=== PATIENT | female | born 1945 | race Caucasian/White ===

== ENCOUNTER 2017-02-21 17:08 | Emergency (ER) | payer OTHER ==
--- NOTE | 2017-02-21 17:14 | EDPHY ---
H & P Time Seen by Provider: 02/21/17 17:12 HPI/ROS: 71-year-old female with history of COPD on oxygen at nighttime presents with complaint of cough fever shortness of breath body aches for greater than 7 days. She has been treated with azithromycin and a prednisone taper which she finished this week. She continues to have symptoms and visited her primary care physician today who then sent her to the emergency department for concern of pneumonia. Her oxygen saturations have been low at home today as low as in the high 70s low 80s. Review of systems As per HPI General positive fever positive chills positive weakness HEENT no eye pain no eye discharge. No eye redness, no sore throat Respiratory positive cough positive shortness of breath Cardiac no chest pain, no peripheral edema GI no abdominal pain, no diarrhea, no constipation, no nausea, no vomiting no flank pain, no hematuria, no dysuria Musculoskeletal positive myalgias no joint pain Heme no easy bruising, no easy bleeding Endo no polyuria, no polydipsia Skin no rashes, no pruritus Neuro no syncope, no dizziness, no headaches Psych is no suicidal ideation, no homicidal ideation Source: Patient, RN/MD - Personal History Current Tetanus/Diphtheria Vaccine: Yes - Medical/Surgical History Hx Asthma: No Hx Chronic Respiratory Disease: Yes Hx Diabetes: No Hx Cardiac Disease: No Hx Renal Disease: No Hx Cirrhosis: No Hx Alcoholism: No Hx HIV/AIDS: No Hx Splenectomy or Spleen Trauma: No Other PMH: former smoker-COPD, depression - Family History Significant Family History: No pertinent family hx - Social History Smoking Status: Former smoker Alcohol Use: None Drug Use: None - Physical Exam Exam: Thin elderly female alert and oriented with coarse cough, no acute distress, mildly tachypneic, febrile 100.7 HEENT atraumatic normocephalic, extraocular muscles intact, anicteric Oropharynx negative for erythema negative exudate, tolerating her own secretions Neck supple no meningismus Lungs scattered wheeze diminished at the left base Heart regular rate and rhythm without murmur rub or gallop Abdomen nondistended normoactive bowel sounds soft nontender Back no CVA tenderness, no step-offs, no spinal tenderness Extremities no cyanosis clubbing or edema Neuro alert and oriented, no focal deficits Constitutional: Initial Vital Signs Temperature (C) 37.1 C 02/21/17 17:18 Heart Rate 97 02/21/17 17:18 Respiratory Rate 18 02/21/17 17:18 Blood Pressure 100/65 02/21/17 17:18 O2 Sat (%) 91 L 02/21/17 17:18 O2 Delivery Mode Nasal Cannula O2 (L/minute) 2 Allergies/Adverse Reactions: No Known Allergies Allergy (Verified 02/21/17 17:23) Home Medications: Medication Instructions Recorded Albuterol [Proventil Inhaler HFA 1 - 2 puffs IH DAILY PRN 04/07/16 (*)] Cholecalciferol Vit D3 [Vitamin D3 2,000 units PO DAILY 04/07/16 (*)] Fluticasone/Salmeter 250/50Mcg 1 puffs IH BID 04/07/16 [Advair 250/50 (*)] Sertraline HCl [Zoloft 100mg (*)] 100 mg PO HS 04/07/16 Simvastatin [Zocor] 40 mg PO HS 04/07/16 Docusate Sodium [Colace 100 MG (*)] 100 mg PO BID #0 cap 05/06/16 Simethicone [Mylicon] 80 mg PO PCHS #0 tab.chew 05/06/16 Duoneb (*) 02/21/17 Medical Decision Making - Diagnostics Imaging Results: Imaging Impressions Chest X-Ray 02/21/17 17:27 Impression: 1. Findings consistent with COPD/emphysema are noted. 2. Development of left lower lobe patchy alveolar opacity could reflect pneumonia. ED Course/Re-evaluation: Patient with a known history of COPD seen and evaluated for cough fevers chills , body aches to rule out pneumonia Differential diagnosis considered Bronchitis, COPD, pneumonia, congestive heart failure, Mi Labs obtained Lactate negative, 1.1 WBC 10 Blood cultures x2 sent Troponin negative Chest x-ray positive for patchy left lower lobe opacity Patient given 1 L IV normal saline, DuoNeb, Solu-Medrol 125 mg IV push IV ceftriaxone 1 g IV piggyback started Patient on 2.5 L nasal cannula Impression Left lower lobe patchy opacity, pneumonia COPD exacerbation Plan Admit Patient request transfer to a [place] Talk to the hospitalist at [facility] - Data Points Laboratory Results: Laboratory Results 02/21/17 17:34 02/21/17 17:34 02/21/17 02/21/17 02/21/17 17:34 17:34 17:34 WBC 10.59 10^3/uL H 10^3/uL (3.80-9.50) RBC 4.66 10^6/uL 10^6/uL (4.18-5.33) Hgb 13.3 g/dL g/dL (12.6-16.3) Hct 39.9 % % (38.0-47.0) MCV 85.6 fL fL (81.5-99.8) MCH 28.5 pg pg (27.9-34.1) MCHC 33.3 g/dL g/dL (32.4-36.7) RDW 13.8 % % (11.5-15.2) Plt Count 326 10^3/uL 10^3/uL (150-400) MPV 10.3 fL fL (8.7-11.7) Neut % (Auto) 76.2 % H % (39.3-74.2) Lymph % (Auto) 11.3 % L % (15.0-45.0) [place] % (Auto) 11.2 % % (4.5-13.0) Eos % (Auto) 0.3 % L % (0.6-7.6) Baso % (Auto) 0.3 % % (0.3-1.7) Nucleat RBC Rel Count 0.0 % % (0.0-0.2) Absolute Neuts (auto) 8.07 10^3/uL H 10^3/uL (1.70-6.50) Absolute Lymphs (auto) 1.20 10^3/uL 10^3/uL (1.00-3.00) Absolute Monos (auto) 1.19 10^3/uL H 10^3/uL (0.30-0.80) Absolute Eos (auto) 0.03 10^3/uL 10^3/uL (0.03-0.40) Absolute Basos (auto) 0.03 10^3/uL 10^3/uL (0.02-0.10) Absolute Nucleated RBC 0.00 10^3/uL 10^3/uL (0-0.01) Immature Gran % 0.7 % % (0.0-1.1) Immature Gran # 0.07 10^3/uL 10^3/uL (0.00-0.10) VBG Lactic Acid 1.1 mmol/L mmol/L (0.7-2.1) Sodium 134 mEq/L mEq/L (134-144) Potassium 4.4 mEq/L mEq/L (3.5-5.2) Chloride 97 mEq/L mEq/L (97-110) Carbon Dioxide 25 mEq/l mEq/l (22-31) Anion Gap 12 mEq/L mEq/L (8-16) BUN 14 mg/dL mg/dL (7-23) Creatinine 0.8 mg/dL mg/dL (0.6-1.0) Estimated GFR > 60 Glucose 95 mg/dL mg/dL (70-100) Calcium 9.4 mg/dL mg/dL (8.5-10.4) Total Bilirubin 0.7 mg/dL mg/dL (0.1-1.4) AST 58 IU/L H IU/L (14-46) ALT 94 IU/L H IU/L (9-52) Alkaline Phosphatase 73 IU/L IU/L (38-126) Creatine Kinase 63 IU/L IU/L (0-156) Troponin I < 0.012 ng/mL ng/mL (0-0.034) Total Protein 6.1 g/dL L g/dL (6.3-8.2) Albumin 3.6 g/dL g/dL (3.5-5.0) Medications Given: Discontinued Medications Acetaminophen (Tylenol) 650 mg PO EDNOW ONE Stop: 02/21/17 17:27 Last Admin: 02/21/17 18:25 Dose: 650 mg Albuterol/Ipratropium (Duoneb) 3 ml IH EDNOW ONE Stop: 02/21/17 17:27 Last Admin: 02/21/17 18:27 Dose: 3 ml Sodium Chloride (Ns) 1,000 mls @ 0 mls/hr IV ONCE ONE PRN Reason: Wide Open Stop: 02/21/17 17:29 Last Admin: 02/21/17 18:16 Dose: 1,000 mls Ceftriaxone Sodium/Dextrose (Rocephin 1 Gm (Premix)) 50 mls @ 100 mls/hr IV EDNOW ONE PRN Reason: Protocol Stop: 02/21/17 18:21 Last Admin: 02/21/17 18:20 Dose: 50 mls Ketorolac Tromethamine (Toradol) 15 mg IVP EDNOW ONE Stop: 02/21/17 18:32 Last Admin: 02/21/17 18:46 Dose: 15 mg Methylprednisolone Sodium Succinate (Solu-Medrol) 125 mg IVP EDNOW ONE Stop: 02/21/17 17:52 Last Admin: 02/21/17 18:17 Dose: 125 mg Departure - Departure Disposition: [facility] Clinical Impression: Pneumonia, Chronic obstructive pulmonary disease with acute exacerbation Condition: Good Referrals: Maylin Gillespie MD [Primary Care Provider] - As per Instructions
[2017-02-21] MEDS ORDERED: IPRATROPIUM/ALBUTEROL 3 ML DEYVIAL IH ONE (17:26)
[2017-02-21] MEDS ORDERED: ACETAMINOPHEN 325 MG TAB PO ONE (17:26)
[2017-02-21 17:27] VITALS: RESP 18
[2017-02-21] MEDS ORDERED: NS 1,000 ML IV ONE (17:28)
[2017-02-21] MEDS ORDERED: methylPREDNISolone SOD SUCC 125 MG/2 ML VIAL IVP ONE (17:51)
[2017-02-21 18:07] LABS: % IMMATURE GRANULYOCYTES 0.7 % (0.0-1.1); ABSOLUTE IMMATURE GRANULOCYTES 0.07 10^3/uL (0.00-0.10); ADD DIFF? NO; ADD MORPH? NO; ADD SCAN? NO; ATYPICAL LYMPHOCYTE FLAG 20 (0-99); FRAGMENT RBC FLAG 0 (0-99); HEMATOCRIT 39.9 % (38.0-47.0); HEMOGLOBIN 13.3 g/dL (12.6-16.3); LEFT SHIFT FLG 10 (0-99); LIPEMIA HEMOLYSIS FLAG 80 (0-99); MEAN CELL HEMOGLOBIN 28.5 pg (27.9-34.1); MEAN CELL HEMOGLOBIN CONCENTR. 33.3 g/dL (32.4-36.7); MEAN CELL VOLUME 85.6 fL (81.5-99.8); MEAN PLATELET VOLUME 10.3 fL (8.7-11.7); PLATELET CLUMPS FLAG 0 (0-99); PLATELET COUNT 326 10^3/uL (150-400); RED BLOOD CELL COUNT 4.66 10^6/uL (4.18-5.33); RED CELL DISTRIBUTION WIDTH 13.8 % (11.5-15.2)
[2017-02-21 18:17] LABS: ALANINE AMINOTRANSFERASE 94 IU/L (9-52); ALBUMIN 3.6 g/dL (3.5-5.0); ALKALINE PHOSPHATASE 73 IU/L (38-126); ANION GAP 12 mEq/L (8-16); ASPARTATE AMINOTRANSFERASE 58 IU/L (14-46); BILIRUBIN,TOTAL 0.7 mg/dL (0.1-1.4); CALCIUM 9.4 mg/dL (8.5-10.4); CARBON DIOXIDE 25 mEq/l (22-31); CHLORIDE 97 mEq/L (97-110); CREATININE 0.8 mg/dL (0.6-1.0); GLOMERULAR FILTRATION RATE > 60; GLUCOSE 95 mg/dL (70-100); POTASSIUM 4.4 mEq/L (3.5-5.2); SODIUM 134 mEq/L (134-144); TOTAL PROTEIN 6.1 g/dL (6.3-8.2)
[2017-02-21 18:28] LABS: TROPONIN I < 0.012 ng/mL (0-0.034)
[2017-02-21] MEDS ORDERED: KETOROLAC 15 MG/1 ML SDV IVP ONE (18:31)
[2017-02-21 20:44] VITALS: BP 96/60; PULSE 98; TEMP 98.4; O2SAT 94
== END 2017-02-21 20:13 | disposition short-term general hospital (02) ==
LOC: CED 17:08
DX: J44.1 Chronic obstructive pulmonary disease with (acute) exacerbation (principal); J18.9 Pneumonia, unspecified organism; Z87.891 Personal history of nicotine dependence
CPT/HCPCS: 71020; 96361; 96365; 96375; 99285; J0696; J1885; 80053-PO; 82550-PO; 83605-PO; 84484-PO; 85025-PO

== ENCOUNTER → 2017-03-24 | Outpatient (CLI) | payer OTHER | LOC: CIMAGING 16:57 | PROVIDERS: ATTEND Family Medicine | DX: J44.9 Chronic obstructive pulmonary disease, unspecified (principal); J98.11 Atelectasis | CPT/HCPCS: 71020-PO ==

== ENCOUNTER 2017-03-28 15:55 | Emergency (ER) | payer OTHER ==
--- NOTE | 2017-03-28 16:26 | EDPHY ---
H & P Time Seen by Provider: 03/28/17 16:18 HPI/ROS: CHIEF COMPLAINT: Left-sided chest pain HISTORY OF PRESENT ILLNESS: The patient is a 71-year-old female with a history of COPD who comes to the emergency department complaining of left-sided pleuritic chest pain for the last 2 weeks. She was admitted to the hospital with pneumonia 1 month ago and discharged with Augmentin. She recovered well but had a follow-up x-ray with her Dr. Maylin Gillespie 4 days ago that revealed left lower lobe atelectasis versus mild infiltrate. The patient was complaining of left-sided pleuritic pain and mild shortness of breath. She was started on Levaquin and states that her shortness of breath has resolved but that the pleuritic pain persists. She has not had a fever. She has not had a cough. She does not fatigue with exertion. She denies any history of cardiac disease. She does have a remote history of breast cancer and lumpectomy. REVIEW OF SYSTEMS: Constitutional: denies: chills, fever, recent illness, recent injury EENTM: denies: blurred vision, double vision, nose congestion Respiratory: See HPI denies: cough, shortness of breath Cardiac: denies: chest pain, irregular heart rate, lightheadedness, palpitations Gastrointestinal/Abdominal: denies: abdominal pain, diarrhea, nausea, vomiting, blood streaked stools Genitourinary: denies: dysuria, frequency, hematuria, pain Musculoskeletal: denies: joint pain, muscle pain Skin: denies: lesions, rash, jaundice, bruising Neurological: denies: headache, numbness, paresthesia, tingling, dizziness, weakness Hematologic/Lymphatic: denies: blood clots, easy bleeding, easy bruising Immunologic/allergic: denies: HIV/AIDS, transplant EXAM: GENERAL: Well-appearing, well-nourished and in no acute distress. HEAD: Atraumatic, normocephalic. EYES: Pupils equal round and reactive to light, extraocular movements intact, sclera anicteric, conjunctiva are normal. ENT: TMs normal, nares patent, oropharynx clear without exudates. Moist mucous membranes. NECK: Normal range of motion, supple without lymphadenopathy or JVD. LUNGS: Breath sounds clear to auscultation bilaterally and equal. No wheezes rales or rhonchi. HEART: Regular rate and rhythm without murmurs, rubs or gallops. ABDOMEN: Soft, nontender, normoactive bowel sounds. No guarding, no rebound. No masses appreciated. BACK: No CVA tenderness, no spinal tenderness, step-offs or deformities EXTREMITIES: Normal range of motion, no pitting or edema. No clubbing or cyanosis. NEUROLOGICAL: Cranial nerves II through XII grossly intact. Normal speech, normal gait. 5/5 strength, normal movement in all extremities, normal sensation PSYCH: Normal mood, normal affect. SKIN: Warm, dry, normal turgor, no visible rashes or lesions. Source: Patient Exam Limitations: No limitations - Medical/Surgical History Hx Asthma: No Hx Chronic Respiratory Disease: Yes Hx Diabetes: No Hx Cardiac Disease: No Hx Renal Disease: No Hx Cirrhosis: No Hx Alcoholism: No Hx HIV/AIDS: No Hx Splenectomy or Spleen Trauma: No Other PMH: former smoker-COPD, depression - Family History Significant Family History: No pertinent family hx - Social History Smoking Status: Former smoker Alcohol Use: Sober Drug Use: None Constitutional: Initial Vital Signs Temperature (C) 36.7 C 03/28/17 16:25 Heart Rate 91 03/28/17 16:25 Respiratory Rate 18 03/28/17 16:25 Blood Pressure 105/59 L 03/28/17 16:25 O2 Sat (%) 90 L 03/28/17 16:25 O2 Delivery Mode Nasal Cannula O2 (L/minute) 2 Allergies/Adverse Reactions: bupropion [From Wellbutrin] Allergy (Verified 02/21/17 20:11) Home Medications: Medication Instructions Recorded Albuterol [Proventil Inhaler HFA 1 - 2 puffs IH DAILY PRN 04/07/16 (*)] Cholecalciferol Vit D3 [Vitamin D3 2,000 units PO DAILY 04/07/16 (*)] Fluticasone/Salmeter 250/50Mcg 1 puffs IH BID 04/07/16 [Advair 250/50 (*)] Sertraline HCl [Zoloft 100mg (*)] 100 mg PO HS 04/07/16 Simvastatin [Zocor] 40 mg PO HS 04/07/16 Docusate Sodium [Colace 100 MG (*)] 100 mg PO BID #0 cap 05/06/16 Simethicone [Mylicon] 80 mg PO PCHS #0 tab.chew 05/06/16 Duoneb (*) 02/21/17 Medical Decision Making - Diagnostics EKG Interpretation: An EKG obtained and was read and documented in trace view. Please see trace view for full reading and report. Sinus rhythm, no acute ischemic changes or signs of right heart strain Imaging Results: Imaging Impressions Chest/Thorax CTA 03/28/17 16:23 Impression: 1. No evidence of thrombopulmonary embolic disease. 2. Atherosclerotic aorta. No dissection or penetrating ulcer. 3. Multifocal nodular airspace consolidation throughout the left upper lobe and bilateral lower lobes. Differential diagnosis includes infectious and inflammatory etiologies, such as fungal infection. Malignancy remains in the differential diagnosis. Recommend short term follow-up noncontrast CT of the chest in 3 months. 4. Severe centrilobular emphysema is worse since 2009. 5. No lymphadenopathy or mass. Findings discussed with Emergency Department physician, Dr. Kelby Zambrano on March 28, 2017 at 1742 hours. Imaging: Discussed imaging studies w/ director call center sales Radiologist ED Course/Re-evaluation: The patient's CT is reassuring. No pulmonary embolism. No significant pneumonia. She does have multiple nodules consistent with resolving pneumonia versus cancer versus fungal infection versus scarring. The patient is afebrile. She is not coughing. She does not have increased O2 requirements. She wears 2 L at baseline. She states that she feels will and is eager to go home. I suspect that her pleuritic pain is from scarring versus pleurisy. Her D-dimer was only minimally elevated and would not be abnormal on an age adjusted scale. It is likely elevated because of her recent pneumonia infection. She is still on a course of Levaquin and states that it is helping. We will road test her here and if she continues to saturate appropriately will discharge her for continued care and follow-up CT scan in 3 months is recommended by Radiology. 5:55 p.m. the patient saturations stayed above 92% while ambulating. She is eager to go home. Differential Diagnosis: Partial list of the Differential diagnosis considered include but were not limited to; pleurisy, pneumonia, PE and although unlikely based on the history and physical exam, I also considered cancer, effusion, acute coronary disease. I discussed these differential diagnoses and the plan with the patient as well as the usual and expected course. The patient understands that the diagnosis is provisional and that in medicine we are not always correct and that further workup is often warranted. Usual and customary warnings were given. All of the patient's questions were answered. The patient was instructed to return to the emergency department should the symptoms at all worsen or return, otherwise to followup with the physician as we discussed. - Data Points Laboratory Results: Laboratory Results 03/28/17 16:20 03/28/17 16:20 03/28/17 03/28/17 03/28/17 16:20 16:20 16:20 WBC 5.71 10^3/uL 10^3/uL (3.80-9.50) RBC 4.66 10^6/uL 10^6/uL (4.18-5.33) Hgb 13.1 g/dL g/dL (12.6-16.3) Hct 40.3 % % (38.0-47.0) MCV 86.5 fL fL (81.5-99.8) MCH 28.1 pg pg (27.9-34.1) MCHC 32.5 g/dL g/dL (32.4-36.7) RDW 14.6 % % (11.5-15.2) Plt Count 300 10^3/uL 10^3/uL (150-400) MPV 9.6 fL fL (8.7-11.7) Neut % (Auto) 60.6 % % (39.3-74.2) Lymph % (Auto) 24.9 % % (15.0-45.0) [place] % (Auto) 10.9 % % (4.5-13.0) Eos % (Auto) 2.5 % % (0.6-7.6) Baso % (Auto) 0.7 % % (0.3-1.7) Nucleat RBC Rel Count 0.0 % % (0.0-0.2) Absolute Neuts (auto) 3.47 10^3/uL 10^3/uL (1.70-6.50) Absolute Lymphs (auto) 1.42 10^3/uL 10^3/uL (1.00-3.00) Absolute Monos (auto) 0.62 10^3/uL 10^3/uL (0.30-0.80) Absolute Eos (auto) 0.14 10^3/uL 10^3/uL (0.03-0.40) Absolute Basos (auto) 0.04 10^3/uL 10^3/uL (0.02-0.10) Absolute Nucleated RBC 0.00 10^3/uL 10^3/uL (0-0.01) Immature Gran % 0.4 % % (0.0-1.1) Immature Gran # 0.02 10^3/uL 10^3/uL (0.00-0.10) PT 13.1 SEC SEC (12.0-15.0) INR 1.02 (0.83-1.16) APTT 34.3 SEC SEC (23.0-38.0) Sodium 142 mEq/L mEq/L (134-144) Potassium 4.1 mEq/L mEq/L (3.5-5.2) Chloride 104 mEq/L mEq/L (97-110) Carbon Dioxide 25 mEq/l mEq/l (22-31) Anion Gap 13 mEq/L mEq/L (8-16) BUN 12 mg/dL mg/dL (7-23) Creatinine 0.8 mg/dL mg/dL (0.6-1.0) Estimated GFR > 60 Glucose 101 mg/dL H mg/dL (70-100) Calcium 9.3 mg/dL mg/dL (8.5-10.4) Total Bilirubin 0.5 mg/dL mg/dL (0.1-1.4) Conjugated Bilirubin 0.4 mg/dL mg/dL (0.0-0.5) Unconjugated Bilirubin 0.1 mg/dL mg/dL (0.0-1.1) AST 23 IU/L IU/L (14-46) ALT 30 IU/L IU/L (9-52) Alkaline Phosphatase 75 IU/L IU/L (38-126) Troponin I < 0.012 ng/mL ng/mL (0.000-0.034) Total Protein 6.5 g/dL g/dL (6.3-8.2) Albumin 3.7 g/dL g/dL (3.5-5.0) Lipase 55 IU/L IU/L (23-300) Departure - Departure Disposition: Home, Routine, Self-Care Clinical Impression: Pleuritic chest pain Condition: Fair Instructions: Pleurisy (ED) Referrals: Maylin Gillespie MD [Primary Care Provider] - 1-2 days without fail
[2017-03-28 16:27] VITALS: RESP 18; TEMP 98.1
[2017-03-28 16:30] LABS: % IMMATURE GRANULYOCYTES 0.4 % (0.0-1.1); ABSOLUTE IMMATURE GRANULOCYTES 0.02 10^3/uL (0.00-0.10); ADD DIFF? NO; ADD MORPH? NO; ADD SCAN? NO; ATYPICAL LYMPHOCYTE FLAG 0 (0-99); FRAGMENT RBC FLAG 0 (0-99); HEMATOCRIT 40.3 % (38.0-47.0); HEMOGLOBIN 13.1 g/dL (12.6-16.3); LEFT SHIFT FLG 0 (0-99); LIPEMIA HEMOLYSIS FLAG 80 (0-99); MEAN CELL HEMOGLOBIN 28.1 pg (27.9-34.1); MEAN CELL HEMOGLOBIN CONCENTR. 32.5 g/dL (32.4-36.7); MEAN CELL VOLUME 86.5 fL (81.5-99.8); MEAN PLATELET VOLUME 9.6 fL (8.7-11.7); PLATELET CLUMPS FLAG 0 (0-99); PLATELET COUNT 300 10^3/uL (150-400); RED BLOOD CELL COUNT 4.66 10^6/uL (4.18-5.33); RED CELL DISTRIBUTION WIDTH 14.6 % (11.5-15.2)
--- NOTE | 2017-03-28 16:34 | CPEKG ---
Heart Rate: 75 RR Interval: 800 P-R Interval: 136 QRSD Interval: 78 QT Interval: 384 QTC Interval: 429 P [place]: 77 QRS [place]: 71 T Wave [place]: 70 EKG Severity - NORMAL ECG - EKG Impression: SINUS RHYTHM Electronically Signed By: Kelby Zambrano 28-Mar-2017 17:05:01
[2017-03-28 16:44] LABS: INR 1.02 (0.83-1.16); PROTIME(PATIENT) 13.1 SEC (12.0-15.0)
[2017-03-28 16:45] LABS: APTT 34.3 SEC (23.0-38.0)
[2017-03-28 16:46] LABS: ALANINE AMINOTRANSFERASE 30 IU/L (9-52); ALBUMIN 3.7 g/dL (3.5-5.0); ALKALINE PHOSPHATASE 75 IU/L (38-126); ANION GAP 13 mEq/L (8-16); ASPARTATE AMINOTRANSFERASE 23 IU/L (14-46); BILIRUBIN,TOTAL 0.5 mg/dL (0.1-1.4); BILIRUBIN-CONJUGATED 0.4 mg/dL (0.0-0.5); BILIRUBIN-UNCONJUGATED 0.1 mg/dL (0.0-1.1); CALCIUM 9.3 mg/dL (8.5-10.4); CARBON DIOXIDE 25 mEq/l (22-31); CHLORIDE 104 mEq/L (97-110); CREATININE 0.8 mg/dL (0.6-1.0); GLOMERULAR FILTRATION RATE > 60; GLUCOSE 101 mg/dL (70-100); POTASSIUM 4.1 mEq/L (3.5-5.2); SODIUM 142 mEq/L (134-144); TOTAL PROTEIN 6.5 g/dL (6.3-8.2)
[2017-03-28 16:57] LABS: TROPONIN I < 0.012 ng/mL (0.000-0.034)
[2017-03-28] MEDS ORDERED: IOPAMIDOL (ISOVUE 370) 100 ML BTL IV ONE (17:00)
[2017-03-28 18:14] VITALS: BP 107/68; PULSE 77; O2SAT 94
== END 2017-03-28 17:55 | disposition home or self-care (01) ==
LOC: CED 15:55
DX: R07.89 Other chest pain (principal); J44.9 Chronic obstructive pulmonary disease, unspecified; Z87.891 Personal history of nicotine dependence
CPT/HCPCS: 71275; 93005; 99285; Q9967; 80048-PO; 80076-PO; 83690-PO; 84484-PO; 85025-PO; 85610-PO; 85730-PO

== ENCOUNTER → 2017-07-06 | Outpatient (CLI) | payer OTHER | LOC: CIMAGING 15:47 | PROVIDERS: ATTEND Family Medicine | DX: J44.1 Chronic obstructive pulmonary disease with (acute) exacerbation (principal); R05 Cough | CPT/HCPCS: 71020-PO ==

== ENCOUNTER → 2017-08-04 | Outpatient (CLI) | payer OTHER | LOC: CIMAGING 09:12 | PROVIDERS: ATTEND Family Medicine | DX: J43.2 Centrilobular emphysema (principal) | CPT/HCPCS: 71250-PO ==

== ENCOUNTER → 2017-08-15 | Outpatient (CLI) | payer OTHER ==
[~2017-08-15] MED LIST: IOPAMIDOL (ISOVUE-300) 100 ML BTL ONE
== END ==
LOC: CIMAGING 13:19
PROVIDERS: ATTEND Family Medicine
DX: N28.89 Other specified disorders of kidney and ureter (principal); K76.89 Other specified diseases of liver; Z85.3 Personal history of malignant neoplasm of breast
CPT/HCPCS: 74178; Q9967

== ENCOUNTER → 2017-10-28 | Outpatient (CLI) | payer OTHER | LOC: CIMAGING 15:16 | PROVIDERS: ATTEND Family Medicine | DX: J44.9 Chronic obstructive pulmonary disease, unspecified (principal); R09.02 Hypoxemia | CPT/HCPCS: 71046-PO ==

== ENCOUNTER → 2018-10-03 | Outpatient (CLI) | payer OTHER | LOC: CIMAGING 13:17 | PROVIDERS: ATTEND Family Medicine | DX: N28.89 Other specified disorders of kidney and ureter (principal) | CPT/HCPCS: 74178; Q9967 ==